=== PATIENT | female | born 1990 | race Two or more races ===

== ENCOUNTER 2016-11-12 22:11 | Emergency (ER) | payer MEDICAID ==
--- NOTE | 2016-11-12 22:14 | ED Physician Chart ---
Chief Complaint/HPI - Patient Information Date Seen:: 11/12/16 Time Seen:: 22:12 Chief Complaint:: headache History of Present Illness:: 26-year-old female complains of acute, constant, severe, aching, worse with palpation, headache on the left frontal parietal area of her head. Symptoms started at 11 AM when she suffered mechanical fall while in [place] getting onto a bus. She struck her head against an unknown object. He has associated dizziness. Denies loss of consciousness. Also complains of acute, constant, worse with weightbearing, severe, aching, nonradiating, right inner ankle pain that started at 11 AM this morning when she fell in [place] getting out of a bus. Historian:: Patient Review:: Nurse's Note Reviewed Review of Systems - Review of Systems Other: Complete system review otherwise unremarkable except as noted in history of present illness. Past Medical History - Past Medical History Past Medical History: HTN Family History: Diabetes Melitus Social History: Non Smoker, No Alcohol, No Drug Use, Other Surgical History: None Psychiatricy History: None Medication: Reviewed Family Medical History - Family Member Mother History Unknown: Yes Ethnicity: Physical Exam - Physical Examination Other:: INITIAL VITAL SIGNS: Reviewed by me GENERAL: Alert and interactive. No acute distress HEAD: Head is normocephalic and atraumatic. There is severe tenderness to palpation with guarding over the left frontal parietal region of the scalp. No obvious injury on visual exam. EYES: EOMI. PERRL. No scleral icterus. No conjunctival injection ENT: Moist mucous membranes. NECK: Supple. No masses. Full range of motion RESPIRATORY: No tachypnea. Clear breath sounds bilaterally. No wheezing, rales, or rhonchi CV: Regular rate and rhythm. No murmurs, rubs, or gallops ABDOMEN: Soft, non-distended, non-tender. No guarding. No rebound. No masses. EXTREMITIES: No deformity. No cyanosis. Right ankle is edematous there is tenderness to palpation over the medial distal malleolus. No ecchymosis. Good neurovascular status to the right distal foot. SKIN: Warm and dry. No obvious rashes. NEUROLOGIC: Alert and oriented. Face is symmetric. Speech is normal. Moves all extremities equally. Motor and sensory distally intact. Labs/Radiology/EKG Results - Radiology Results Results: CT head without contrast NAD X-ray right Ankle 3V Interpreted by me: Bones: No fracture Joints: No dislocation Foreign Body: None ED Septic Shock - . Is Septic Shock (SBP<90, OR Lactate>4 mmol\L) present?: No Reassessment (Disposition) - Reassessment Reassessment:: Patient suffered closed head injury at about 11 AM this morning. Apparently no loss of consciousness but was left with headache and dizziness. CT of the head shows no acute findings. Patient was exquisitely sensitive to palpation over the left parietal area toward the front. There was no sign of ecchymosis or hematoma. Ankle was also injured at about 11 AM this morning. X-rays unremarkable for any acute fractures. GCS = 15 We gave oral Tylenol and intramuscular Toradol. There was symptom relief. Gave prescription for ibuprofen. Apply the Tai wrap to right ankle. Provided crutches. Post-Tai wrap gross neurovascular check was good. Reassessment Condition:: Improved - Diagnosis Diagnosis:: Closed head injury/blunt head trauma Dizziness Headache, unspecified Right ankle sprain, acute, first visit - Aftercare/Follow up Instructions Aftercare/Follow-Up Instructions:: Counseled pt regarding lab results/diagnosis & need follow up, Refer to Discharge Instructions Medication Prescribed:: Ibuprofen - Patient Disposition Discharge/Transfer:: Home Time:: 23:21 Condition at Disposition:: Improved ED Discharge Plan - Patient Disposition Admit/Discharge/Transfer: PT DISCHARGED HOME Condition at Disposition: Improved Instructions: Head Injury, Adult, Ankle Sprain Additional Instructions: Follow-up with your primary care physician within 2-3 days. If your ankle pain does not improve in one week, you may need a repeat x-ray of the ankle.
[2016-11-12] MEDS ORDERED: Acetaminophen 500 MG TAB PO ONE (22:16)
[2016-11-12 22:32] LABS: URINE BILIRUBIN NEGATIVE (NEGATIVE); URINE BLOOD MODERATE (NEGATIVE); URINE GLUCOSE (UA) NEGATIVE (NEGATIVE); URINE KETONE NEGATIVE (NEGATIVE); URINE PROTEIN 100 mg/dL (NEGATIVE); URINE UROBILINOGEN 0.2 E.U./dL (0.2 - 1.0)
[2016-11-12] MEDS ORDERED: Acetaminophen 500 MG TAB ONE (22:40)
[2016-11-12 22:48] LABS: URINE COLOR YELLOW
[2016-11-12 22:49] LABS: URINE BACTERIA N /hpf (NONE SEEN); URINE EPITHELIAL CELLS NONE SEEN /lpf (FEW); URINE WBC 0-2 /hpf (0-5)
--- NOTE | 2016-11-13 08:07 | Diagnostic Imaging Report ---
CT scan of the brain without contrast History: Trauma Total DLP equals 682 CTDI equals 37.8 Axial sections were obtained from the base of the skull to the vertex. There is a normal ventricular system size. No focal parenchymal lesions are seen. No evidence of any mass effect or shift of midline structures. No extra-axial masses or abnormal fluid collections. Impression: Negative examination.
--- NOTE | 2016-11-13 08:09 | Diagnostic Imaging Report ---
Exam: Right ankle. HISTORY: Trauma Findings: Portable examination of right ankle 2254 hours reviewed. The study demonstrates soft tissue swelling over lateral and medial malleolus. The ankle mortise intact. There is no evidence for acute fracture dislocation. Spurring was calcaneus appreciated. IMPRESSION: Soft tissue swelling lateral medial malleolar no evidence for acute fracture dislocation.
== END 2016-11-12 23:55 | disposition home or self-care (01) ==
LOC: ER 22:11
DX: S09.90XA Unspecified injury of head, initial encounter (principal); S93.401A Sprain of unspecified ligament of right ankle, initial encounter; R42 Dizziness and giddiness; X58.XXXA Exposure to other specified factors, initial encounter; Y93.9 Activity, unspecified; Y92.89 Other specified places as the place of occurrence of the external cause; Y99.9 Unspecified external cause status; Z88.5 Allergy status to narcotic agent
CPT/HCPCS: 99285; 96372; 73610; 70450; 81001; 81025; J1885; Z7610